=== PATIENT | female | born 1990 | race Caucasian/White ===

== ENCOUNTER → 2024-10-24 | Outpatient (CLI) | payer BC ==
[2024-10-24 11:55] VITALS: BP 167/98; PULSE 93; RESP 17; TEMP 98.1
--- NOTE | 2024-10-24 12:37 | P.GSCN ---
History of Present Illness Consult date: 10/24/24 Reason for Consult: Granulomatous mastitis left breast Requesting physician: Ehsan Richard History of present illness: Mery is a 34 year old female seen in consultation for Dr. 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 She underwent a bilateral mammogram on 06-05-2024. This revealed an irregular mass measuring 3.5 cm with spiculated margins in the left breast at 3:00. She subsequently underwent an ultrasound of this area on the same date. This again revealed a 2 cm irregular mass in the 3 o'clock position corresponding to palpable and mammographic abnormality. The patient underwent an ultrasound-guided core biopsy of the lesion on 06-19-2024. Pathology was reported as granulomatous mastitis and was felt to be concordant. She was seen by Dr. Lord a breast surgeon, and he referred to DR. Shaina Ward and told to take a steriod pill. She first noted the left breast lump in May. She initially had pain. The pain stopped but the lump remained. The nipple is starting to descend and slightly larger. It is tender to touch. She has not had any surgery on her breast. She has had no trauma or infection in the breast. She did breast-feed but stopped 4 years ago. She has no further nipple discharge. Patient had a papillary thyroid cancer, 2015 Nicotine: none caffeine: coffee: 1 cup/day chocolate: weekly BCP: about 3 years as a teenager hormones: none Family History: mother: thyroid cancer hurtle cell patient: papillary cancer thyroid Hormonal History: menarche: 12 , breast fed: yes, age at first : 22 periods regular, LMP Oct.02 Surgical HIstory: total thyroidectomy/radiation therapy Medical History: hypothyroid Social history: Nicotine: Negative Alcohol: none drugs: none Review of Systems - Constitutional Denies fever, Denies weight loss - EENT Eyes: denies blurred vision Ears: deny: decreased hearing, tinnitus Ears, nose, mouth and throat: Denies dysphagia - Breasts bilateral: as per HPI - Cardiovascular Denies chest pain, Denies shortness of breath - Respiratory Denies cough, Denies 7 - Gastrointestinal Reports as per HPI - Genitourinary Genitourinary: Denies dysuria, Denies hematuria Menstruation: Reports period normal - Musculoskeletal Reports as per HPI - Neurological Denies headaches, Denies syncope - Psychiatric Reports as per HPI - Endocrine Reports as per HPI - Hematologic/Lymphatic Denies easy bleeding, Denies easy bruising - Allergic/Immunologic Reports seasonal allergies Medications and Allergies Home Medications Medication Instructions Recorded Confirmed Type Levothyroxine Sodium 1 tab PO DAILY 10/24/24 10/24/24 History Allergies Allergy/AdvReac Type Severity Reaction Status Date / Time No Known Allergies Allergy Unverified 10/24/24 11:50 Surgical - Exam - General no distress - Eyes normal ocular movement - ENT no hearing loss - Neck trachea midline - Respiratory normal respiratory effort, clear to auscultation - Cardiovascular Rhythm: regular Heart Sounds: normal: S1, S2 - Abdomen Abdomen: soft, non tender, no guarding, no rigid, no rebound - Integumentary normal turgor no abnormal pigmentation - Neurologic no disoriented, no combative - Musculoskeletal normal gait - Psychiatric oriented to time, oriented to person, oriented to place, speech is normal, memor y intact Breast Exam: BRA: X-large sports bra inspection: Right breast is larger than left breast, there is some retraction of the nipple on the left side with some clear nipple discharge Palpation: Right breast: Multi positional exam fibrocystic changes no dominant masses or nodules of concern Right axilla: No adenopathy of concern Left breast: Multi positional exam fullness in the post areolar area approximately 6 x 6 cm in size slightly tender to palpation Clear nipple discharge with palpation Left axilla: No adenopathy of concern Guaiac testing of the left nipple discharge does not reveal any blood Results Bilateral mammogram and ultrasound personally reviewed Pathology report reviewed/granulomatous mastitis left breast Assessment and Plan Assessment: Impression: Granulomatous mastitis left breast Patient had appointment with parquetry layer however she could not get in for several months and therefore has come seeking further advice Plan: appointment rheumatology to consider steroid treatment We have discussed surgical resection however if we can shrink this with steroid treatment we would prefer to avoid surgery Follow-up here in 6 weeks Ultrasound of the left breast in 6 weeks with follow-up appointment after this CC: Dr. Quinones
== END ==
LOC: WWCWWP 11:31
PROVIDERS: ATTEND Surgery
DX: N61.22 Granulomatous mastitis, left breast (principal)

== ENCOUNTER → 2024-10-29 | Outpatient (CLI) | payer BC ==
[2024-10-29 16:53] LABS: Basophils # (A) 0.05 X 10*3/uL (0.00-0.10); Basophils % (A) 0.7 %; Eosinophils # (A) 0.12 X 10*3/uL (0.04-0.35); Eosinophils % (A) 1.7 %; HCT 41.3 % (37.2-46.3); HGB 13.5 g/dL (12.0-15.0); Lymphocytes # (A) 1.81 X 10*3/uL (0.90-5.00); Lymphocytes % (A) 25.4 %; MCH 29.5 pg (27.0-32.0); MCHC 32.7 g/dL (32.0-37.0); MCV 90.4 FL (80.0-97.0); Mean Platelet Volume 10.4 FL (9.5-12.2); Monocytes # (A) 0.38 X 10*3/uL (0.20-1.00); Monocytes % (A) 5.3 %; NRBC Per 100 WBC 0 X 10*3/uL (0.00-0.01); Neutrophils # (A) 4.73 X 10*3/uL (1.80-7.70); Neutrophils % (A) 66.5 %; Platelet Count 253 X 10*3/uL (140-440); RBC 4.57 X 10*6/uL (4.10-5.20); RDW 13.1 % (11.5-14.5); WBC 7.12 X 10*3/uL (4.50-10.00)
[2024-10-29 16:54] LABS: ALT 21 U/L (8-44); AST 17 U/L (13-35); Albumin 4.5 g/dL (3.8-4.9); Albumin/Globulin Ratio 1.67 Ratio (1.60-3.17); Alkaline Phosphatase 85 U/L (41-126); BUN/Creat Ratio 18.57 Ratio (12.00-20.00); Calcium 8.8 mg/dL (8.7-10.3); Carbon Dioxide 23.9 mmol/L (21.6-31.8); Chloride 107 mmol/L (96-109); Creatine Kinase 63 U/L (26-186); Globulin 2.7 g/dL (1.6-3.3); Glucose 90 mg/dL (70-110); Rheumatoid Factor, Qnt <15 IU/mL (0-15); Sodium 145 mmol/L (135-145); T4, Free (Free Thyroxine) 1.45 ng/dL (0.80-1.80); Total Bilirubin 0.4 mg/dL (0.3-1.2); Total Protein 7.2 g/dL (6.2-8.2); Uric Acid 4.7 mg/dL (2.9-7.7)
[2024-10-29 17:23] LABS: Erythrocyte Sedimentation Rate 20 mm/Hr (0-20)
[2024-10-29 19:40] LABS: Cyclic Citrull Pep IgG Unit <1.5 U/mL (<=3.9); Cyclic Citrullinated Pep IgG Negative
[2024-10-30 10:20] LABS: Angiotensin-1 Converting Enz. 19 U/L (8-52)
== END | disposition home or self-care (01) ==
LOC: LABWHC1 11:17
PROVIDERS: ATTEND Internal Medicine Rheumatology
DX: L40.9 Psoriasis, unspecified (principal); N61.22 Granulomatous mastitis, left breast
CPT/HCPCS: 36415; 80053; 82164; 82306; 82550; 83520; 84439; 84443; 84550; 85025; 85652; 86038; 86140; 86200; 86431; 86480

== ENCOUNTER → 2024-12-05 | Outpatient (CLI) | payer BC ==
--- NOTE | 2024-12-05 11:09 | USB ---
Reason for Exam: Additional evaluation requested from prior study. Risk Values: Karmen 5 year model risk: 0.2%. NCI Lifetime model risk: 6.9%. Technique: Method: Targeted. Doppler: Color. Patient Position: Supine. Findings: The area of palpable concern of the left breast, the axilla of the left breast and the retroareolar of the left breast were scanned. A complete US of all four quadrants of the breast , axilla, and retro-areolar region were reviewed. No solid or cystic masses are identified. At the 3:00 periareolar region, there is redemonstrated irregular hypoechoic area with some associated vascularity measuring 2.8 x 0.9 x 1.0 cm. Microclip located adjacent to this region, approximately 6 mm away. The area itself appears to extend to the nipple. Patient being treated with steroids for granulomatous mastitis found on biopsy. In the subareolar region, there is focal duct ectasia with 2 rounded filling defects measuring 5 mm each. Additional 11:00 scanning shows an elongated heterogeneous mixed cystic and echogenic area measuring 1.5 x 1.3 x 1.0 cm. The exact etiology is unclear. No other solid or cystic lesion or axillary adenopathy. Overall Assessment: Incomplete: need additional imaging evaluation, BI-RAD 0 Management: Diagnostic Mammogram of the left breast. [facility], , 12/05/2024 11:06 AM. Electronically signed and approved by: Iván Jang M.D. Radiologist
--- NOTE | 2024-12-05 11:29 | MM ---
Reason for Exam: Follow-up at short interval from prior study. Last screening mammogram was performed 6 month(s) ago. Patient History: Menarche at age 12. First Full-Term at age 21. Hormonal Contraceptives for 3 years from age 16 until age 19. 06/19/2024, US breast localization LT on the Left side. Risk Values: Karmen 5 year model risk: 0.3%. NCI Lifetime model risk: 8.4%. Tissue Density: Left: There are scattered areas of fibroglandular density. Findings: Analyzed By CAD. Irregular focal asymmetry subareolar left breast persists but is slightly decreased in size currently 3.4 cm versus 4.2 cm, previously. Microclip is located here from prior biopsy. Some strandy fibroglandular tissue is located at the 11:00, possible correlated to the ultrasound finding. No suspicious microcalcification or other discrete abnormality is seen. Overall Assessment: Suspicious, BI-RAD 4 Management: Ultrasound Core Biopsy of the left breast. Diagnostic Breast Ultrasound of the left breast in 6 months. Two site biopsy is recommended. Biopsy of (1) the intraductal lesions and (2) repeat biopsy of the larger 3.4 cm area which is presently being treated as granulomatous mastitis. The 11:00 area can be reassessed at follow-up. Results were given to the patient verbally at the time of exam. [facility], , 12/05/2024 11:26 AM. Electronically signed and approved by: Iván Jang M.D. Radiologist
== END | disposition home or self-care (01) ==
LOC: RADUSWWP 10:28
PROVIDERS: ATTEND Surgery
DX: R92.322 Mammographic fibroglandular density, left breast (principal); N64.52 Nipple discharge; Z92.0 Personal history of contraception
CPT/HCPCS: 77061; 77065

== ENCOUNTER → 2024-12-16 | Day surgery (SDC) | payer BC ==
--- NOTE | 2024-12-20 09:18 | MM ---
Reason for Exam: Post Procedure Mammogram. Last screening mammogram was performed 6 month(s) ago. Patient History: Menarche at age 12. First Full-Term at age 21. Hormonal Contraceptives for 3 years from age 16 until age 19. 06/19/2024, US breast localization LT on the Left side. Risk Values: Karmen 5 year model risk: 0.4%. NCI Lifetime model risk: 11.3%. Prior Study Comparison: 06/05/2024 Bilateral Diagnostic Mammogram, Unknown. 06/19/2024 Left Diagnostic Mammogram, Unknown. 12/05/2024 Left MG 3D diag mammo w/cad LT, [facility]. Tissue Density: Left: The breasts are heterogeneously dense, which may obscure small masses. Pathology Description: Location: retroareolar. Marker Left Behind. Needle Type: Celero Cores: 3 Gauge: 12 Pathology Description: Location: 3 o'clock. Marker Left Behind. Needle Type: Celero Cores: 3 Gauge: 12 The procedure of ultrasound guided core biopsy was explained to the patient. Benefits, alternatives, and risks were discussed. An informed consent was then obtained. The patient was placed in supine positioning for imaging and for the procedure. The overlying skin was prepped and draped in usual sterile fashion. Lidocaine buffered with bicarbonate was used as anesthetic into the skin and subcutaneous tissue up to area of concern in the left 3:00 breast with an additional lesion noted at the left 12:00 retroareolar region.. Under ultrasound guidance, a 12-gauge vacuum assisted biopsy gun device was used to obtain 3 core samples of each site. Following this, a biopsy clips were deployed within the lesions simple. The patient tolerated the procedure well without any immediate complication. The patient was kept in the radiology department for short stay after the procedure and then discharged home in stable condition. Postprocedure mammogram: The patient was transferred to mammography for physician ordered post procedure mammogram for clip placement verification. Post procedure mammogram demonstrates the clips in appropriate placement. Impression: Successful, uncomplicated ultrasound guided core biopsy at 2 locations left breast. Pathology results are to follow. [facility], , 12/16/2024 12:48 PM. Pathology Results: Result: Benign. Pathology and radiology were reviewed. Findings are concordant. A. LEFT, 3:00, ULTRASOUND GUIDED CORE BIOPSY: Granulomatous mastitis with abundant acute and chronic inflammation and fat necrosis with abscess (see note). Current specimen negative for diagnostic invasive carcinoma. B. LEFT NIPPLE, CORE BIOPSY: Benign fragmented ductal cyst with mild acute and chronic inflammation. Negative for malignancy. Notes To characterize the process, immunostains and special stains are performed with appropriate controls on block A1. CK7 stains positive within focal benign ductal cells and a focal area of detached rare cells near one tissue surface. CD68 stains positive within abundant histiocytic inflammatory cells. Intradepartmental consultation at the daily pathology consensus conference is in agreement with the assessment of negativity for diagnostic invasive carcinoma. Consensus opinion includes the opinion of Dr. Emmanuel Mena. AFB staining on block A1 is negative for acid-fast bacilli. Both GMS and PAS stains on block A1 are negative for fungal organisms. A Gram stain on block A1 highlights favored gram-positive bacterial organisms. Clinical correlation with culture studies is suggested, as clinically indicated. The differential diagnosis for the granulomatous mastitis seen includes an infectious etiology and possible inflamed rheumatoid nodule. Sarcoidosis is a less likely differential diagnosis consideration of clinical exclusion. Overall Assessment: Benign Assessment: MG diagnostic mammo LT wo CAD. - Left: Benign, BI-RAD 2. Management: Diagnostic Breast Ultrasound of the left breast in 6 months. Electronically signed and approved by: Basilio Ramos M.D. Radiologis
== END ==
LOC: RADUSWWP 09:55
PROVIDERS: ATTEND Surgery
DX: N61.20 Granulomatous mastitis, unspecified breast (principal); N64.1 Fat necrosis of breast; R92.8 Other abnormal and inconclusive findings on diagnostic imaging of breast
CPT/HCPCS: 88305; 88312; 88342; 88341; 77065; 19083; 19084; A4648

== ENCOUNTER → 2025-01-10 | Outpatient (CLI) | payer BC ==
[2025-01-10 13:17] VITALS: BP 145/87; PULSE 82; RESP 17; TEMP 97.9
--- NOTE | 2025-01-10 13:33 | P.PN ---
Subjective Progress Note Date: 01/10/25 Principal diagnosis: granulomatous mastitis left breast Mery is a 34 year old female seen in consultation for Dr. 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 She underwent a bilateral mammogram on 06-05-2024. This revealed an irregular mass measuring 3.5 cm with spiculated margins in the left breast at 3:00. She subsequently underwent an ultrasound of this area on the same date. This again revealed a 2 cm irregular mass in the 3 o'clock position corresponding to palpable and mammographic abnormality. The patient underwent an ultrasound-guided core biopsy of the lesion on 06-19-2024. Pathology was reported as granulomatous mastitis and was felt to be concordant. She was seen by Dr. Lord a breast surgeon, and he referred to DR. Shaina Ward and told to take a steriod pill. She first noted the left breast lump in May. She initially had pain. The pain stopped but the lump remained. The nipple is starting to descend and slightly larger. It is tender to touch. She has not had any surgery on her breast. She has had no trauma or infection in the breast. She did breast-feed but stopped 4 years ago. She has no further nipple discharge. Patient had a papillary thyroid cancer, [id number] Patient on 12-05-24 had a left breast diagnostic mammogram and ultrasound, she was recommended to have core biopsy of two sites: 1. irregular asymmetry decreased from 4.2 to 3.4 cm done granulomatous mastitis 12-16-24 2. intraductal lesion: benign done on 12-16-24 repeat left breast ultrasound in 6 months. She responded well to steroids with almost complete resolution of the site until after the biopsy. After the biopsy the left periareolar region became more swollen and painful the pain is decreased at this time. She saw Dr. Roman and was on steroids, it swelled after the biopsy she is going to start her on methotrexate Nicotine: none caffeine: coffee: 1 cup/day chocolate: weekly BCP: about 3 years as a teenager hormones: none Family History: mother: thyroid cancer hurtle cell patient: papillary cancer thyroid Hormonal History: menarche: 12 , breast fed: yes, age at first : 22 periods regular, LMP Oct.02 Surgical HIstory: total thyroidectomy/radiation therapy Medical History: hypothyroid Social history: Nicotine: Negative Alcohol: none drugs: none Review of Systems - Constitutional Denies fever, Denies weight loss - EENT Eyes: denies blurred vision Ears: deny: decreased hearing, tinnitus Ears, nose, mouth and throat: Denies dysphagia - Breasts bilateral: as per HPI - Cardiovascular Denies chest pain, Denies shortness of breath - Respiratory Denies cough - Gastrointestinal Reports as per HPI - Genitourinary Genitourinary: Denies dysuria, Denies hematuria Menstruation: Reports period normal - Musculoskeletal Reports as per HPI - Neurological Denies headaches, Denies syncope - Psychiatric Reports as per HPI - Endocrine Reports as per HPI - Hematologic/Lymphatic Denies easy bleeding, Denies easy bruising - Allergic/Immunologic Reports seasonal allergies Medications and Allergies Home Medications Medication Instructions Recorded Confirmed Type Levothyroxine Sodium 1 tab PO DAILY 10/24/24 10/24/24 History Allergies Allergy/AdvReac Type Severity Reaction Status Date / Time No Known Allergies Allergy Unverified 10/24/24 11:50 Objective - Vital Signs Vital signs: Vital Signs Temp 97.9 F 01/10/25 13:15 Pulse 82 01/10/25 13:15 Resp 17 01/10/25 13:15 BP 145/87 01/10/25 13:15 Pulse Ox 99 01/10/25 13:15 FiO2 Intake & Output 01/09/25 01/10/25 01/10/25 18:59 06:59 18:59 Weight 94.801 kg - Constitutional General appearance: Present: cooperative - EENT ENT: Present: hearing grossly normal - Neck Neck: Present: normal ROM - Respiratory Respiratory: bilateral: CTA - Cardiovascular Rhythm: regular Heart sounds: normal: S1, S2 - Integumentary Integumentary: Present: normal turgor - Musculoskeletal Musculoskeletal: Present: gait normal - Psychiatric Psychiatric: Present: A&O x's 3, appropriate affect, intact judgment & insight - Additional findings Additional findings: Breast Exam: BRA: X-large sports bra inspection: Right breast is larger than left breast, there is resolution of the return retraction of the left nipple without discharge today Palpation: Right breast: Multi positional exam fibrocystic changes no dominant masses or nodules of concern Right axilla: No adenopathy of concern Left breast: Multi positional exam fullness in the post areolar area approximately 6 x 6 cm in size slightly tender to palpation; this is improved markedly to approximately 2 x 3 cm Clear nipple discharge with palpation resolved Left axilla: No adenopathy of concern Guaiac testing of the left nipple discharge does not reveal any blood Assessment and Plan Assessment: Impression: Granulomatous mastitis left breast Patient had appointment with trampoline team coach and had a course of prednisone, she is now recommended to go on methotrexate Plan: Ultrasound of the left breast in 6 months Methotrexate as per rheumatology Follow-up sooner any questions or concerns CC: Dr. Quinones
== END ==
LOC: WWCWWP 12:03
PROVIDERS: ATTEND Surgery
DX: N61.22 Granulomatous mastitis, left breast (principal)